=== PATIENT | male | born 1965 | race Caucasian/White ===

== ENCOUNTER 2016-12-16 07:26 | Emergency (ER) | payer OTHER ==
[~2016-12-16] VITALS: Ht 172.7 cm; Wt 79.4 kg
[2016-12-16 07:38] VITALS: BP 113/79
--- NOTE | 2016-12-16 07:55 | ED SKIN/ALLERGY COMPLAINT ---
History of Present Illness General Chief Complaint: Skin Rash/ Abcess Stated Complaint: HIVES Source: patient, old records Exam Limitations: no limitations Vital Signs & Intake/Output Vital Signs & Intake/Output Vital Signs Date Time Temp Pulse Resp B/P B/P Pulse O2 O2 Flow FiO2 Mean Ox Delivery Rate 12/16 0738 97.2 92 20 113/79 100 Room Air Allergies Coded Allergies: No Known Allergies (12/16/16) Reconcile Medications Chlorhexidine Gluconate (Hibiclens) 4 % LIQUID 1 SHERRI TOP DAILY RASH (Reported ) Epinephrine (Epipen) 0.3 MG/0.3 ML AUTO.INJCT 1 INJ SC DAILY PRN UNKNOWN ( Reported) Fluocinolone Acetonide 0.01 % CREAM..G. 1 SHERRI TOP BID RASH (Reported) Triage Note: PT TO ED C/O HIVES ALL OVER X A FEW MONTHS. HAS BEEN TREATED AT THE OR WITH MEDS, STATES TODAY IS "THE WORST". Triage Nurses Notes Reviewed? yes HPI: Patient has had hives all over his body for the past few months. Patient has been seen multiple times at the OR including by an agricultural equipment test engineer there. Patient is on loratadine as well as hydroxyzine and steroid cream. Patient has been on steroids in the past. They're unsure what is causing the urticaria. This morning he woke up and felt like his body was on fire because the hives. Patient did not know what else to do so comes in to the emergency department for evaluation. Patient denies any difficulty breathing or difficulty swallowing. There are no fevers or chills. Eyes are very itchy. Not been on any medications, new foods or laundry detergents. Past History Travel History Traveled to [place] past 21 day No Medical History Any Pertinent Medical History? see below for history Other Medical Hx: CHRONIC URTICARIA Surgical History Surgical History: non-contributory Psychosocial History What is your primary language Vietnamese Tobacco Use: Current Daily Use Daily Tobacco Use Amount/Type: => 5 Cigarettes daily ETOH Use: occasional use Illicit Drug Use: cocaine Family History Hx Contributory? No Review of Systems Review of Systems Constitutional: Reports: no symptoms. EENTM: Reports: no symptoms. Respiratory: Reports: no symptoms. Cardiovascular: Reports: no symptoms. GI: Reports: no symptoms. Skin: Reports: see HPI, rash. Neurological/Psychological: Reports: no symptoms. Immunologic/Allergic: Reports: no symptoms. Physical Exam Physical Exam General Appearance: well developed/nourished, alert, awake, anxious, moderate distress Head: atraumatic Eyes: Bilateral: PERRL, EOMI. Ears, Nose, Throat: normal pharynx, normal ENT inspection Respiratory: normal breath sounds, chest non-tender, no respiratory distress, lungs clear Cardiovascular: regular rate/rhythm, normal peripheral pulses Neurologic/Psych: no motor/sensory deficits, awake, alert, oriented x 3, normal gait, normal mood/affect Skin: rash Skin Problem Location: generalized Skin Problem Character: urticarial Progress Differential Diagnosis: allergic reaction, anaphylaxis, drug reaction, urticaria Plan of Care: Current Medications Sig/Lizz Start time Last Medication Dose Stop Time Status Admin Prednisone 60 MG ONCE ONE 12/16 0800 UNVr 12/16 0801 Comments: [facility] just [facility] here but then [facility]. Departure Departure Disposition: HOME OR SELF CARE Condition: Stable Clinical Impression Primary Impression: Urticaria Referrals: PITO PEARSON,DAVID ESQUIVEL (PCP/Family) Additional Instructions: [facility] RETURN FOR ANY CONCERNS Departure Forms: Customer Survey General Discharge Information
[2016-12-16] MEDS ORDERED: HIBICLENS118 ML TOP (07:56)
[2016-12-16] MEDS ORDERED: EPIPEN0.3 MG/0.1 SC (07:57)
[2016-12-16] MEDS ORDERED: FLUOCINOLONE AC15 GM TOP (07:57)
== END 2016-12-16 07:59 ==
LOC: ERH 07:26
DX: L50.9 Urticaria, unspecified (principal)